=== PATIENT | female | born 1970 | race Caucasian/White ===

== ENCOUNTER → 2020-05-14 07:29 | Outpatient (CLI) | payer OTHER, SELFPAY ==
[2020-05-14 08:24] LABS: Add Manual Diff / Slide Review NO; Basophils Absolute Auto 0 /uL (0-100); Eosinophils Absolute Auto 100 /uL (0-450); Eosinophils Percent Auto 2.7 % (2-4); Hematocrit 39.1 % (36-46); Hemoglobin 13.3 g/dL (12.0-16.0); Lymphocytes Absolute Auto 900 /uL (1100-4500); Lymphocytes Percent Auto 22.9 % (25-40); Mean Corpuscular HGB Conc 34.1 % (30-36); Mean Corpuscular Hemoglobin 31.1 PG (26-34); Mean Corpuscular Volume 91.1 fL (80-100); Monocytes Absolute Auto 300 /uL (0-900); Monocytes Percent Auto 7.8 % (3-14); Neutrophils Absolute Auto 2600 /uL (1500-7000); Neutrophils Percent Auto 65.6 % (50-75); Platelet Count 130 X10^3/uL (150-400); Red Blood Cell Count 4.29 X10^6/uL (4.0-5.2); Red Cell Distribution Width 13.1 % (11.6-14.8); White Blood Cell Count 3.9 X10^3/uL (4.5-11.0)
[2020-05-14 08:54] LABS: Alanine Aminotransferase 17 IU/L (<35); Albumin 4.4 g/dL (3.5-5.0); Albumin Globulin Ratio 1.6 (1.0-2.8); Alkaline Phosphatase 45 U/L (38-126); Aspartate Aminotransferase 22 IU/L (14-36); Bilirubin Total 0.6 mg/dL (0.2-1.3); Blood Urea Nitrogen 11 mg/dL (7-17); Calcium 8.9 mg/dL (8.4-10.2); Carbon Dioxide 26 mmol/L (22-32); Chloride 107 mmol/L (98-107); Cholesterol 164 mg/dL (140-199); Estimated Glomerular Filt Rate > 60.0 mL/min (>60); Globulin 2.7 g/dL (1.7-4.1); Glucose 88 mg/dL (70-100); HDL Cholesterol 57 mg/dL (40-60); HEMOLYSIS < 15 (0-50); LDL Cholesterol Calculated 98 mg/dL (<100); Potassium 4.1 mmol/L (3.4-5.1); Sodium 140 mmol/L (137-145); Total Protein 7.1 g/dL (6.3-8.2); Triglycerides 47 mg/dL (35-150)
[2020-05-14 09:15] LABS: TSH w/ Reflex to FT4 3.91 uIU/mL (0.47-4.68)
[2020-05-15 08:12] LABS: SARS CoV19 IgG Negative (Negative)
== END ==
PROVIDERS: PCP Registered Nurse Diabetes Educator; Referring Provider Registered Nurse Diabetes Educator; Visit Provider Registered Nurse Diabetes Educator
DX: Z13.1 Encounter for screening for diabetes mellitus (principal); Z13.220 Encounter for screening for lipoid disorders; Z87.898 Personal history of other specified conditions; Z11.59 Encounter for screening for other viral diseases
CPT/HCPCS: 36415; 80053; 80061; 84443; 85025; 86769

== ENCOUNTER → 2020-05-21 14:34 | Outpatient (CLI) | payer OTHER, SELFPAY ==
[2020-05-21 15:36] LABS: Hematocrit 39.2 % (36-46); Mean Corpuscular HGB Conc 33.3 % (30-36); Mean Corpuscular Hemoglobin 30.2 PG (26-34); Mean Corpuscular Volume 90.9 fL (80-100); Platelet Count 157 X10^3/uL (150-400); Red Blood Cell Count 4.31 X10^6/uL (4.0-5.2); White Blood Cell Count 5.5 X10^3/uL (4.5-11.0)
[2020-05-21 16:13] LABS: Neutrophils Absolute Manual 3410 /uL (3000-5900); Total Cells Counted 100
[2020-05-21 16:14] LABS: RBC Morphology Normal Morphology
== END ==
PROVIDERS: PCP Registered Nurse Diabetes Educator; Referring Provider Registered Nurse Diabetes Educator; Visit Provider Registered Nurse Diabetes Educator
DX: D69.6 Thrombocytopenia, unspecified (principal)
CPT/HCPCS: 36415; 85025

== ENCOUNTER → 2020-06-28 09:37 | Outpatient (CLI) | payer OTHER, SELFPAY ==
--- NOTE | 2020-06-28 | DI.MG.S_ITS ---
BILATERAL DIGITAL SCREENING MAMMOGRAM 3D/2D WITH CAD: 06/28/2020 CLINICAL: Routine screening. Comparison is made to exams dated: 04/30/2019 mammogram, 04/17/2018 mammogram, and 04/15/2017 mammogram - outside location. The tissue of both breasts is heterogeneously dense. This may lower the sensitivity of mammography. Current study was also evaluated with a Computer Aided Detection (CAD) system. No significant masses, calcifications, or other findings are seen in either breast. There has been no significant interval change. IMPRESSION: NEGATIVE There is no mammographic evidence of malignancy. A 1 year screening mammogram is recommended. This exam was interpreted at Station ID: [id number]. NOTE: For mammograms, a report in lay terms will be sent to the patient. Approximately 15% of breast malignancies will not be visualized mammographically. In the management of a palpable breast mass, a negative mammogram must not discourage biopsy of a clinically suspicious lesion. Electronically Signed By: Nguyễn simmons/german:06/30/2020 07:55:48 letter sent: Normal Exam ACR BI-RADS Category 1: Negative 3341F
== END ==
PROVIDERS: PCP Registered Nurse Diabetes Educator; Referring Provider Registered Nurse Diabetes Educator; Visit Provider Registered Nurse Diabetes Educator
DX: Z12.31 Encounter for screening mammogram for malignant neoplasm of breast (principal)
CPT/HCPCS: 77063; 77067

== ENCOUNTER → 2021-07-28 15:34 | Outpatient (CLI) | payer OTHER, SELFPAY ==
--- NOTE | 2021-07-28 | DI.MG.S_ITS ---
BILATERAL DIGITAL SCREENING MAMMOGRAM 3D/2D WITH CAD: 07/28/2021 CLINICAL: Routine screening. Family history of breast cancer. Comparison is made to exams dated: 06/28/2020 mammogram - [facility], 04/30/2019 mammogram, and 04/17/2018 mammogram - outside location. The tissue of both breasts is heterogeneously dense. This may lower the sensitivity of mammography. Current study was also evaluated with a Computer Aided Detection (CAD) system. No significant masses, calcifications, or other findings are seen in either breast. There has been no significant interval change. IMPRESSION: NEGATIVE There is no mammographic evidence of malignancy. A 1 year screening mammogram is recommended. This exam was interpreted at Station ID: [id number]. NOTE: For mammograms, a report in lay terms will be sent to the patient. Approximately 15% of breast malignancies will not be visualized mammographically. In the management of a palpable breast mass, a negative mammogram must not discourage biopsy of a clinically suspicious lesion. Electronically Signed By: Nguyễn simmons/german:07/28/2021 16:01:42 letter sent: Normal Exam ACR BI-RADS Category 1: Negative 3341F
== END ==
PROVIDERS: PCP Registered Nurse Diabetes Educator; Referring Provider Registered Nurse Diabetes Educator; Visit Provider Registered Nurse Diabetes Educator
DX: Z12.31 Encounter for screening mammogram for malignant neoplasm of breast (principal)
CPT/HCPCS: 77063; 77067

== ENCOUNTER → 2021-08-19 09:49 | Outpatient (CLI) | payer OTHER, SELFPAY | PROVIDERS: PCP Registered Nurse Diabetes Educator; Visit Provider Nurse Practitioner Family | DX: R30.9 Painful micturition, unspecified (principal) | CPT/HCPCS: 87086 ==

== ENCOUNTER → 2022-03-07 11:45 | Outpatient (CLI) | payer OTHER, SELFPAY ==
[2022-03-07 12:07] LABS: COVID19 -Nasal RAPID Negative (Negative)
== END ==
PROVIDERS: PCP Registered Nurse Diabetes Educator; Visit Provider Nurse Practitioner Family
DX: Z20.822 Contact with and (suspected) exposure to COVID-19 (principal)
CPT/HCPCS: 87635

== ENCOUNTER → 2022-05-19 09:08 | Outpatient (CLI) | payer OTHER, SELFPAY ==
[2022-05-19 10:25] LABS: COVID19 -Nasal RAPID Negative (Negative)
== END ==
PROVIDERS: PCP Registered Nurse Diabetes Educator; Visit Provider Surgery
DX: Z20.822 Contact with and (suspected) exposure to COVID-19 (principal); Z01.812 Encounter for preprocedural laboratory examination
CPT/HCPCS: 87635; C9803

== ENCOUNTER 2022-05-20 06:43 | Day surgery (SDC) | payer OTHER, SELFPAY ==
[2022-05-20 07:20] VITALS: BP 143/79; PULSE 85; RESP 16; TEMP 36.9; O2SAT 99; BMI 24.2
--- NOTE | 2022-05-20 07:44 | PM.HP.1 ---
History of Present Illness History of Present Illness Date Patient Seen: 05/20/22 Time Patient Seen: 07:44 Chief complaint: SDC Narrative: Jeanna is a 52-year-old woman who has never had a colonoscopy before. She has no known family history of colon cancer. She describes having had an adverse reaction to fentanyl in the past when she had a and she is adamant that she does not want to have any fentanyl today. Patient History Medical History (Updated 05/20/22 @ 07:45 by Flash Haider MD) Diabetes mellitus screening History of acute illness Lipid screening Thrombocytopenia Family & Social History Social History: household members spouse Tobacco & Substance use: Smoking Status Never smoker alcohol intake current alcohol intake frequency 0-2 drinks per day Substance Use Type does not use Meds Home Medications and Allergies Home Medications Medication Instructions Recorded Confirmed Type albuterol sulfate 90 mcg/actuation 2 puff inhalation Q6H PRN 03/07/22 03/07/22 Rx aerosol inhaler shortness of breath or wheezing #6.7 grams sodium sul 1.479 gram-potas ch See Rx Instructions PO PER PKG DIR 04/20/22 Rx 0.188 gram-magnes sul 0.225 gram #24 tabs tablet (Sutab) Allergies Allergy/AdvReac Type Severity Reaction Status Date / Time fentanyl Allergy Severe Anaphylaxis Verified 05/20/22 07:17 Sulfa (Sulfonamide Allergy Severe rash, hives Verified 03/07/22 11:38 Antibiotics) Exam Vital Signs (past 8 hours): - 05/20/22 07:20 Temperature 98.5 F Pulse Rate 85 Respiratory Rate 16 Blood Pressure 143/79 H Pulse Oximetry 99 Oxygen Delivery Method Room Air Oxygen Delivery Method Room Air Const General: healthy appearing Resp Effort & Inspection: normal respiratory effort Assessment & Plan Assessment and plan (1) Colon cancer screening: Status: Acute Plan 52-year-old woman in need of colonoscopy for colon cancer screening. We reviewed the risks and benefits of colonoscopy for colon cancer screening. She would like to have Versed only for sedation. I explained the role fentanyl for pain relief and she is certain that she does not want to have any fentanyl for her sedation. We will proceed with Versed only. COVID-19 COVID-19 status: Negative Result date/Date tested (Pos, Neg/Pending): 05/19/22 Time Spent With Patient Critical Care time: I spent a total of [] minutes of critical care time on this patient's care today; this time is exclusive of procedural time.
[2022-05-20] MEDS: MIDAZOLAM 5 MG/5 ML VIAL 15 MG IV (08:03)
[2022-05-20 08:19] VITALS: BP 104/51; PULSE 85; RESP 21; O2SAT 99
--- NOTE | 2022-05-20 08:19 | PM.OP.COLON ---
Operative Date/Time/Diagnoses Date of procedure: 05/20/22 Time of procedure: 08:19 Pre-op diagnosis: Colon cancer screening Post-op diagnosis: same Procedure & Clinicians Study performed: Colonoscopy Same procedure as scheduled: Yes Surgeon: Flash Haider Procedure Notes Procedure in detail: Surgeon: Flash Haider MD Procedure: The patient was brought to the endoscopy suite, placed in left lateral decubitus position. The patient was connected to monitoring devices. A time-out was performed. Sedation was administered. Once the patient was adequately sedated, a digital rectal exam was performed and was normal. The scope was then inserted and advanced to the cecum where the appendiceal orifice was identified and photographed. The scope was then slowly withdrawn over greater than 6 minutes. The mucosa was thoroughly inspected. There were rare diverticula in the sigmoid colon. The scope was retroflexed in the rectum. No abnormalities were noted. The scope was straightened and removed. The patient was awakened and brought to recovery. Versed: 15 mg Fentanyl: 0 mcg EBL: 0 Findings: Rare sigmoid diverticula Scope withdrawal time: 6 Sedation minutes: 26 Post-procedure Recommendations: Colonoscopy in 10 years Disposition: PACU
[2022-05-20 08:26] VITALS: BP 109/64; PULSE 86; RESP 22; O2SAT 99
--- NOTE | 2022-05-20 08:31 | SUR.PHASEI ---
Pt arrived, slow to arouses, vss, follows commands, denied pain report to CAITIE Trevino
[2022-05-20 08:46] VITALS: BP 109/64; PULSE 72; RESP 16; TEMP 36.8; O2SAT 98
== END 2022-05-20 09:25 | disposition home or self-care (01) ==
PROVIDERS: PCP Registered Nurse Diabetes Educator; Referring Provider Surgery; Visit Provider Surgery
PROC: 0DJD8ZZ Inspection of Lower Intestinal Tract, Via Natural or Artificial Opening Endoscopic (ICD-10-PCS; CPT 45378; principal; 2022-05-20 07:45)
DX: Z12.11 Encounter for screening for malignant neoplasm of colon (principal); K57.30 Diverticulosis of large intestine without perforation or abscess without bleeding
CPT/HCPCS: 45378; 99152; 99153; J2250

== ENCOUNTER → 2022-08-02 10:08 | Outpatient (CLI) | payer OTHER, SELFPAY ==
--- NOTE | 2022-08-02 | DI.MG.S_ITS ---
BILATERAL DIGITAL SCREENING MAMMOGRAM 3D/2D WITH CAD: 08/02/2022 CLINICAL: Routine screening. Family history of breast cancer. Comparison is made to exams dated: 07/28/2021 mammogram, 06/28/2020 mammogram - [facility], and 04/30/2019 mammogram - outside location. Both breasts are heterogeneously dense, which may obscure small masses (category c / 51-75% glandular tissue). Current study was also evaluated with a Computer Aided Detection (CAD) system. No significant masses, calcifications, or other findings are seen in either breast. There has been no significant interval change. IMPRESSION: NEGATIVE There is no mammographic evidence of malignancy. A 1 year screening mammogram is recommended. Based on Tyrer-Cuzick model (a risk assessment model), the patient's lifetime risk is 28.2% and her 10 year risk is 7.5%. If a patient has an elevated risk, a more comprehensive evaluation should be considered and/or a referral to a genetic counselor. The [place] [employer], [employer] [employer], and NCCN Guidelines advise the consideration of Breast MRI as an adjunct to screening mammography in patients whose Lifetime risk to develop breast cancer is 20% or higher. This exam was interpreted at Station ID: [id number]. NOTE: For mammograms, a report in lay terms will be sent to the patient. Approximately 15% of breast malignancies will not be visualized mammographically. In the management of a palpable breast mass, a negative mammogram must not discourage biopsy of a clinically suspicious lesion. Electronically Signed By: Lee Franco M.D., jr/german:08/02/2022 10:34:19 letter sent: Normal Exam ACR BI-RADS Category 1: Negative 3341F
== END ==
PROVIDERS: PCP Registered Nurse Diabetes Educator; Referring Provider Registered Nurse Diabetes Educator; Visit Provider Registered Nurse Diabetes Educator
DX: Z12.31 Encounter for screening mammogram for malignant neoplasm of breast (principal); Z80.3 Family history of malignant neoplasm of breast
CPT/HCPCS: 77063; 77067

== ENCOUNTER → 2022-11-25 12:04 | Outpatient (CLI) | payer OTHER, SELFPAY ==
--- NOTE | 2022-11-25 12:06 | DI.RAD.S_ITS ---
PROCEDURE: XR LUMBAR SPINE 2-3V INDICATIONS: eval recurrent lbp TECHNIQUE: 3 views of the lumbar spine were acquired. COMPARISON: None. FINDINGS: Bones: 5 [id number] vertebral bodies are present in the lumbar spine. No significant malalignment. No vertebral body height loss. Mild overall spondylosis with facet arthropathy and minimal disc space height loss. Soft tissues: No suspicious calcifications. IMPRESSION: Mild spondylosis without acute radiographic abnormality. If there is high concern for further derangement, consider MRI evaluation. Dictated by: Damien Arreguin M.D. on 11/29/2022 at 13:22 Approved by: Damien Arreguin M.D. on 11/29/2022 at 13:23
== END ==
PROVIDERS: Family Provider Registered Nurse Diabetes Educator; PCP Registered Nurse Diabetes Educator; Referring Provider Registered Nurse Diabetes Educator; Visit Provider Registered Nurse Diabetes Educator
DX: M54.50 Low back pain, unspecified (principal); M47.816 Spondylosis without myelopathy or radiculopathy, lumbar region
CPT/HCPCS: 72100

== ENCOUNTER 2023-02-21 08:15 | Outpatient (RCR) | payer OTHER, SELFPAY ==
--- NOTE | 2022-12-22 11:12 | PT.OPPOC ---
Physical, Occupational & Speech Therapy At [facility] Current Diagnoses Stress incontinence (female) (male) (12/22/22) Visit Care Team Role Provider Type MATA Paul Attending Provider Advanced Lens Assistant Family Provider Primary Care Provider Referring Provider Specialty: Medical Address: [address] [place] [address], [facility] Email: [email or web address] Plan Of Care PT-OP-T Assessment and Plan Start: 12/06/22 12:59 Freq: Status: Active Protocol: Document 12/22/22 09:00 AMB (Rec: 12/26/22 11:11 AMB [id number]) Physical Therapy Assessment Rehab Potential Rehabilitation Potential Good Evaluation Complexity Number of Personal Factors/Comorbidities 0 Number of Body Systems Impaired 1-2 Clinical Presentation at Evaluation Stable Impairments Impairments Functional Activities,Strength Goals Two Impairment Pelvic floor strength Short Term Goal (STG) Solis will improve her pelvic floor strength to 4/5. STG Duration 5 weeks Buttermaker Continuous Churn Goal (LTG) Solis will be independent and consistent with a HEP to strengthen her pelvic floor. LTG Duration 10 weeks One Impairment Continence Short Term Goal (STG) Solis will cough while in standing without leaking. STG Duration 5 weeks Buttermaker Continuous Churn Goal (LTG) Solis will sneeze with a full bladder without leaking. LTG Duration 10 weeks Assessment Summary Assessment Solis attends physical therapy with stress urinary incontinence with cough/sneeze . Worst in the mornings and the week before her period. She was able to contract her pelvic floor, but would benefit from further strengthening of levator ani. She will benefit from physical therapy for instruction in appropriate strengthening to reduce her leaking. Physical Therapy Plan Frequency and Duration Frequency of Treatment 1x/Week Duration of treatment (weeks) 10 Plan of Care Start Date 12/22/22 Plan of Care End Date 03/02/23 Therapeutic Interventions Therapeutic Interventions Home Exercise Program,Manual Therapy,Neuromuscular Re- education,Self-Care/Home Management,Therapeutic Activities,Therapeutic Exercises Modalities Biofeedback,Electric Stimulation Next Visit Focus/Plan Next Note Type Treatment Note Next Visit Plan Review quick flicks and long holds, progress to standing as tolerated Plan of Care Dates Plan of Care Start Date 12/22/22 Plan of Care End Date 03/02/23 Electronically Signed by: Jennifer Ariza, PT 12/26/22 0719 If you are in agreement with this Plan of Care, please return a signed and dated copy. I have reviewed this Plan of Care and certify that the skilled therapy services above are required to meet the patient?s needs. Physician Signature Date Printed Name and Credentials Clinical Instructor Signature Printed Name and Credentials
--- NOTE | 2022-12-22 11:12 | PT.OIE ---
Current Diagnoses Stress incontinence (female) (male) (12/22/22) Past Medical History (Last Reviewed 11/28/22 @ 16:06 by MATA Paul) Diabetes mellitus screening History of acute illness Lipid screening Thrombocytopenia Visit Care Team Role Provider Type MATA Paul Attending Provider Advanced Learning Officer Family Provider Primary Care Provider Referring Provider Specialty: Medical Address: [address] [place] [address], [facility] Email: [email or web address] Physical Therapy Initial Evaluation PT-OP-A Visit Information Start: 12/06/22 12:59 Freq: Status: Active Protocol: Document 12/22/22 09:00 AMB (Rec: 12/22/22 09:46 AMB [id number]) Out-Patient Physical Therapy Visit Information Visit Information Visit Type Initial Evaluation Visit Start Time 09:00 Visit Stop Time 09:45 Total Visit Minutes 45 Visit Number 1 PT-OP-B Current Condition Start: 12/06/22 12:59 Freq: Status: Active Protocol: Document 12/22/22 09:00 AMB (Rec: 12/22/22 09:46 AMB [id number]) Current Condition History of Current Condition Onset Date 3 years Current Complaints stress urinary incontinence History of Current Condition 2010 was single live no leaking. But a few years ago noticed leaking. Still menstruating, but has noticed hot flashes. Worse in the morning, with sneeze and cough. Hasn't really noticed it with exercise. PT-OP-C Subjective Start: 12/06/22 12:59 Freq: Status: Active Protocol: Document 12/22/22 09:00 AMB (Rec: 12/22/22 12:15 AMB [id number]) Patient Questionnaires Pelvic Pain and Urgency/Frequency Patient Symptom Scale Pelvic Pain Score 9 PT-OP-I Pelvic Floor Start: 12/06/22 12:59 Freq: Status: Active Protocol: Document 12/22/22 09:00 AMB (Rec: 12/22/22 12:15 AMB [id number]) Pelvic Floor Assessment Urine Pelvic Floor Surgery Yes: Csection 2010 Urinary Symptoms Falling Out Feeling/Heavy Leakage Size Small Leakage Cause Cough,Sneeze Leaks Per Day 2/month Voiding Frequency 5/day Nocturia 1 Prolapse Cystocele Grade 1 Contraction Ability Voluntary Contraction Moderate Voluntary Relaxation Moderate Manual Muscle Testing Left 3 Manual Muscle Testing Right 3 Manual Muscle Testing Anterior 3 Manual Muscle Testing Posterior 3 Muscle Endurance (Seconds) 5 PT-OP-T Assessment and Plan Start: 12/06/22 12:59 Freq: Status: Active Protocol: Document 12/22/22 09:00 AMB (Rec: 12/26/22 11:11 [facility] [id number]) Physical Therapy Assessment Rehab Potential Rehabilitation Potential Good Evaluation Complexity Number of Personal Factors/Comorbidities 0 Number of Body Systems Impaired 1-2 Clinical Presentation at Evaluation Stable Impairments Impairments Functional Activities,Strength Goals Two Impairment Pelvic floor strength Short Term Goal (STG) Solis will improve her pelvic floor strength to 4/5. STG Duration 5 weeks Mri Specialist Goal (LTG) Solis will be independent and consistent with a HEP to strengthen her pelvic floor. LTG Duration 10 weeks One Impairment Continence Short Term Goal (STG) Solis will cough while in standing without leaking. STG Duration 5 weeks Mri Specialist Goal (LTG) Solis will sneeze with a full bladder without leaking. LTG Duration 10 weeks Assessment Summary Assessment Solis attends physical therapy with stress urinary incontinence with cough/sneeze . Worst in the mornings and the week before her period. She was able to contract her pelvic floor, but would benefit from further strengthening of levator ani. She will benefit from physical therapy for instruction in appropriate strengthening to reduce her leaking. Physical Therapy Plan Frequency and Duration Frequency of Treatment 1x/Week Duration of treatment (weeks) 10 Plan of Care Start Date 12/22/22 Plan of Care End Date 03/02/23 Therapeutic Interventions Therapeutic Interventions Home Exercise Program,Manual Therapy,Neuromuscular Re- education,Self-Care/Home Management,Therapeutic Activities,Therapeutic Exercises Modalities Biofeedback,Electric Stimulation Next Visit Focus/Plan Next Note Type Treatment Note Next Visit Plan Review quick flicks and long holds, progress to standing as tolerated
--- NOTE | 2022-12-28 09:44 | PT.OTN ---
Current Diagnoses Stress incontinence (female) (male) (12/28/22) Physical Therapy Treatment Note PT-OP-A Visit Information Start: 12/06/22 12:59 Freq: Status: Active Protocol: Document 12/28/22 09:06 AMB (Rec: 12/28/22 09:43 AMB [id number]) Out-Patient Physical Therapy Visit Information Visit Information Visit Type Treatment Note Visit Start Time 09:00 Visit Stop Time 09:45 Total Visit Minutes 45 Visit Number 2 PT-OP-B Current Condition Start: 12/06/22 12:59 Freq: Status: Active Protocol: Document 12/22/22 09:00 AMB (Rec: 12/22/22 09:46 AMB [id number]) Current Condition History of Current Condition Onset Date 3 years Current Complaints stress urinary incontinence History of Current Condition 2010 was single live no leaking. But a few years ago noticed leaking. Still menstruating, but has noticed hot flashes. Worse in the morning, with sneeze and cough. Hasn't really noticed it with exercise. PT-OP-C Subjective Start: 12/06/22 12:59 Freq: Status: Active Protocol: Document 12/28/22 09:06 AMB (Rec: 12/28/22 09:43 AMB [id number]) OP-PT Subjective Patient Comments Patient Comments Pt reports no new leaks. Has been working on exercises. PT-OP-I Pelvic Floor Start: 12/06/22 12:59 Freq: Status: Active Protocol: Document 12/22/22 09:00 AMB (Rec: 12/22/22 12:15 AMB [id number]) Pelvic Floor Assessment Urine Pelvic Floor Surgery Yes: Csection 2010 Urinary Symptoms Falling Out Feeling/Heavy Leakage Size Small Leakage Cause Cough,Sneeze Leaks Per Day 2/month Voiding Frequency 5/day Nocturia 1 Prolapse Cystocele Grade 1 Contraction Ability Voluntary Contraction Moderate Voluntary Relaxation Moderate Manual Muscle Testing Left 3 Manual Muscle Testing Right 3 Manual Muscle Testing Anterior 3 Manual Muscle Testing Posterior 3 Muscle Endurance (Seconds) 5 PT-OP-Q Treatments Start: 12/06/22 12:59 Freq: Status: Active Protocol: Document 12/28/22 09:06 AMB (Rec: 12/28/22 09:43 AMB [id number]) Therapeutic Exercises Sitting Exercises 1 Sitting Exercise Name roll in roll out Reps/Minutes 2x10 Comments more challenged by roll in Standing Exercises mini lunges` Comments long holds 1 Standing Exercise Name WBOS and stride stance Comments long holds PT-OP-T Assessment and Plan Start: 12/06/22 12:59 Freq: Status: Active Protocol: Document 12/28/22 09:06 AMB (Rec: 12/28/22 09:43 AMB [id number]) Physical Therapy Assessment Goals Two Impairment Pelvic floor strength Short Term Goal (STG) Solis will improve her pelvic floor strength to 4/5. STG Duration 5 weeks Sales And Production Manager Goal (LTG) Solis will be independent and consistent with a HEP to strengthen her pelvic floor. LTG Duration 10 weeks One Impairment Continence Short Term Goal (STG) Solis will cough while in standing without leaking. STG Duration 5 weeks Sales And Production Manager Goal (LTG) Solis will sneeze with a full bladder without leaking. LTG Duration 10 weeks Assessment Summary Assessment No new leaks, going to be going into PMS week next week so that will be a good test. Has been working on exercises. Roll outs easier than roll ins. Physical Therapy Plan Frequency and Duration Frequency of Treatment 1x/Week Duration of treatment (weeks) 10 Plan of Care Start Date 12/22/22 Plan of Care End Date 03/02/23 Therapeutic Interventions Therapeutic Interventions Home Exercise Program,Manual Therapy,Neuromuscular Re- education,Self-Care/Home Management,Therapeutic Activities,Therapeutic Exercises Modalities Biofeedback,Electric Stimulation Next Visit Focus/Plan Next Note Type Treatment Note Next Visit Plan Review quick flicks and long holds, progress to standing as tolerated
--- NOTE | 2023-01-19 13:03 | PT.OTN ---
Current Diagnoses Stress incontinence (female) (male) (01/19/23) Physical Therapy Treatment Note PT-OP-A Visit Information Start: 12/06/22 12:59 Freq: Status: Active Protocol: Document 01/19/23 08:19 AMB (Rec: 01/19/23 09:01 AMB [id number]) Out-Patient Physical Therapy Visit Information Visit Information Visit Type Treatment Note Visit Start Time 08:15 Visit Stop Time 09:00 Total Visit Minutes 45 Visit Number 4 PT-OP-B Current Condition Start: 12/06/22 12:59 Freq: Status: Active Protocol: Document 12/22/22 09:00 AMB (Rec: 12/22/22 09:46 AMB [id number]) Current Condition History of Current Condition Onset Date 3 years Current Complaints stress urinary incontinence History of Current Condition 2010 was single live no leaking. But a few years ago noticed leaking. Still menstruating, but has noticed hot flashes. Worse in the morning, with sneeze and cough. Hasn't really noticed it with exercise. PT-OP-C Subjective Start: 12/06/22 12:59 Freq: Status: Active Protocol: Document 01/19/23 08:19 AMB (Rec: 01/19/23 09:01 AMB [id number]) OP-PT Subjective Patient Comments Patient Comments Clear of the UTI, struggling to make a habit with exercises . PT-OP-I Pelvic Floor Start: 12/06/22 12:59 Freq: Status: Active Protocol: Document 12/22/22 09:00 AMB (Rec: 12/22/22 12:15 AMB [id number]) Pelvic Floor Assessment Urine Pelvic Floor Surgery Yes: Csection 2010 Urinary Symptoms Falling Out Feeling/Heavy Leakage Size Small Leakage Cause Cough,Sneeze Leaks Per Day 2/month Voiding Frequency 5/day Nocturia 1 Prolapse Cystocele Grade 1 Contraction Ability Voluntary Contraction Moderate Voluntary Relaxation Moderate Manual Muscle Testing Left 3 Manual Muscle Testing Right 3 Manual Muscle Testing Anterior 3 Manual Muscle Testing Posterior 3 Muscle Endurance (Seconds) 5 PT-OP-Q Treatments Start: 12/06/22 12:59 Freq: Status: Active Protocol: Document 01/19/23 08:19 AMB (Rec: 01/19/23 09:01 AMB [id number]) Therapeutic Exercises Sitting Exercises 1 Sitting Exercise Name roll in roll out Reps/Minutes 2x10 Comments more challenged by roll in Standing Exercises bicep curls, shoulder flex, scaption Resistance 5# Comments cue breathing, pelvic floor with UE weights squat Reps/Minutes 10# Comments 2x10 [address] Resistance #4 Reps/Minutes 5 mini lunges` Comments long holds 1 Standing Exercise Name WBOS and stride stance Comments long holds PT-OP-T Assessment and Plan Start: 12/06/22 12:59 Freq: Status: Active Protocol: Document 01/19/23 08:19 AMB (Rec: 01/19/23 09:01 AMB [id number]) Physical Therapy Assessment Goals Two Impairment Pelvic floor strength Short Term Goal (STG) Solis will improve her pelvic floor strength to 4/5. STG Duration 5 weeks Cnmt Goal (LTG) Solis will be independent and consistent with a HEP to strengthen her pelvic floor. LTG Duration 10 weeks One Impairment Continence Short Term Goal (STG) Solis will cough while in standing without leaking. STG Duration 5 weeks Alf Goal (LTG) Solis will sneeze with a full bladder without leaking. LTG Duration 10 weeks Assessment Summary Assessment Pt encouraged in strengthening pelvic floor with weightlifting. Pt to work for the next month and then report back on progress. Physical Therapy Plan Frequency and Duration Frequency of Treatment 1x/Week Duration of treatment (weeks) 10 Plan of Care Start Date 12/22/22 Plan of Care End Date 03/02/23 Therapeutic Interventions Therapeutic Interventions Home Exercise Program,Manual Therapy,Neuromuscular Re- education,Self-Care/Home Management,Therapeutic Activities,Therapeutic Exercises Modalities Biofeedback,Electric Stimulation Next Visit Focus/Plan Next Note Type Treatment Note Next Visit Plan Review quick flicks and long holds, progress to standing as tolerated
--- NOTE | 2023-02-21 08:57 | PT.OTN ---
Current Diagnoses Stress incontinence (female) (male) (02/21/23) Physical Therapy Treatment Note PT-OP-A Visit Information Start: 12/06/22 12:59 Freq: Status: Active Protocol: Document 02/21/23 08:20 AMB (Rec: 02/21/23 08:56 AMB [id number]) Out-Patient Physical Therapy Visit Information Visit Information Visit Type Treatment Note Visit Start Time 08:15 Visit Stop Time 09:00 Total Visit Minutes 45 Visit Number 5 PT-OP-B Current Condition Start: 12/06/22 12:59 Freq: Status: Active Protocol: Document 12/22/22 09:00 AMB (Rec: 12/22/22 09:46 AMB [id number]) Current Condition History of Current Condition Onset Date 3 years Current Complaints stress urinary incontinence History of Current Condition 2010 was single live no leaking. But a few years ago noticed leaking. Still menstruating, but has noticed hot flashes. Worse in the morning, with sneeze and cough. Hasn't really noticed it with exercise. PT-OP-C Subjective Start: 12/06/22 12:59 Freq: Status: Active Protocol: Document 02/21/23 08:20 AMB (Rec: 02/21/23 08:56 AMB [id number]) OP-PT Subjective Patient Comments Patient Comments Did try to contract pelvic floor while moving rocks around, feels overall about the same. PT-OP-I Pelvic Floor Start: 12/06/22 12:59 Freq: Status: Active Protocol: Document 12/22/22 09:00 AMB (Rec: 12/22/22 12:15 AMB [id number]) Pelvic Floor Assessment Urine Pelvic Floor Surgery Yes: Csection 2010 Urinary Symptoms Falling Out Feeling/Heavy Leakage Size Small Leakage Cause Cough,Sneeze Leaks Per Day 2/month Voiding Frequency 5/day Nocturia 1 Prolapse Cystocele Grade 1 Contraction Ability Voluntary Contraction Moderate Voluntary Relaxation Moderate Manual Muscle Testing Left 3 Manual Muscle Testing Right 3 Manual Muscle Testing Anterior 3 Manual Muscle Testing Posterior 3 Muscle Endurance (Seconds) 5 PT-OP-Q Treatments Start: 12/06/22 12:59 Freq: Status: Active Protocol: Document 02/21/23 08:20 AMB (Rec: 02/21/23 08:56 AMB [id number]) Therapeutic Exercises Sitting Exercises 1 Sitting Exercise Name roll in roll out Reps/Minutes 2x10 Comments more challenged by roll in Standing Exercises bicep curls, shoulder flex, scaption Resistance 5# Comments cue breathing, pelvic floor with UE weights squat Reps/Minutes 10# Comments 2x10 single leg squat drive Resistance #4 Reps/Minutes 5 mini lunges` Comments long holds 1 Standing Exercise Name WBOS and stride stance Comments long holds PT-OP-T Assessment and Plan Start: 12/06/22 12:59 Freq: Status: Active Protocol: Document 02/21/23 08:20 AMB (Rec: 02/21/23 08:56 AMB [id number]) Physical Therapy Assessment Goals Two Impairment Pelvic floor strength Short Term Goal (STG) Solis will improve her pelvic floor strength to 4/5. STG Duration MET Wood Preparation Supervisor Goal (LTG) Solis will be independent and consistent with a HEP to strengthen her pelvic floor. LTG Duration MET One Impairment Continence Short Term Goal (STG) Solis will cough while in standing without leaking. STG Duration MET Wood Preparation Supervisor Goal (LTG) Solis will sneeze with a full bladder without leaking. 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 She really just leaks with sneezes in her premenstrual week, so it's difficult for her to tell if she's improving or not, but she is more aware of her pelvic floor and core at this point. Physical Therapy Plan Frequency and Duration Frequency of Treatment 1x/Week Duration of treatment (weeks) 10 Plan of Care Start Date 12/22/22 Plan of Care End Date 03/02/23 Therapeutic Interventions Therapeutic Interventions Home Exercise Program,Manual Therapy,Neuromuscular Re- education,Self-Care/Home Management,Therapeutic Activities,Therapeutic Exercises Modalities Biofeedback,Electric Stimulation Next Visit Focus/Plan Next Note Type Treatment Note Next Visit Plan Review quick flicks and long holds, progress to standing as tolerated
== END 2023-02-24 08:55 | disposition home or self-care (01) ==
LOC: PHYS 08:15
PROVIDERS: Absent Provider Registered Nurse Diabetes Educator; Family Provider Registered Nurse Diabetes Educator; PCP Registered Nurse Diabetes Educator; Referring Provider Registered Nurse Diabetes Educator; Visit Provider Registered Nurse Diabetes Educator
DX: N39.3 Stress incontinence (female) (male) (principal)
CPT/HCPCS: 97110; 97161

== ENCOUNTER → 2023-08-10 16:08 | Outpatient (CLI) | payer OTHER, SELFPAY ==
--- NOTE | 2023-08-10 | DI.MG.S_ITS ---
BILATERAL DIGITAL SCREENING MAMMOGRAM 3D/2D WITH CAD: 08/10/2023 CLINICAL: Routine screening. Family history of breast cancer. Comparison is made to exams dated: 08/02/2022 mammogram, 07/28/2021 mammogram, 06/28/2020 mammogram - [facility], 04/30/2019 mammogram, and 04/17/2018 mammogram - outside location. Both breasts are heterogeneously dense, which may obscure small masses (category c / 51-75% glandular tissue). Current study was also evaluated with a Computer Aided Detection (CAD) system. There is a possible asymmetry in the left breast middle depth superior region seen on the mediolateral oblique view only. This is more prominent. No other significant masses, calcifications, or other findings are seen in either breast. IMPRESSION: INCOMPLETE: NEEDS ADDITIONAL IMAGING EVALUATION The possible asymmetry in the left breast is indeterminate. Additional views with possible ultrasound are recommended. Based on Tyrer-Cuzick model (a risk assessment model), the patient's lifetime risk is 28.2% and her 10 year risk is 7.9%. If a patient has an elevated risk, a more comprehensive evaluation should be considered and/or a referral to a genetic counselor. The [place] [employer], [employer], and NCCN Guidelines advise the consideration of Breast MRI as an adjunct to screening mammography in patients whose Lifetime risk to develop breast cancer is 20% or higher. This exam was interpreted at Station ID: [id number]. NOTE: For mammograms, a report in lay terms will be sent to the patient. Approximately 15% of breast malignancies will not be visualized mammographically. In the management of a palpable breast mass, a negative mammogram must not discourage biopsy of a clinically suspicious lesion. Electronically Signed By: Geoffrey Astudillo M.D. [facility] [place]/:08/11/2023 08:47:06 letter sent: Additional Imaging Needed ACR BI-RADS Category 0: Incomplete 3340F
== END ==
PROVIDERS: Family Provider Registered Nurse Diabetes Educator; PCP Registered Nurse Diabetes Educator; Referring Provider Registered Nurse Diabetes Educator; Visit Provider Registered Nurse Diabetes Educator
DX: Z12.31 Encounter for screening mammogram for malignant neoplasm of breast (principal); Z80.3 Family history of malignant neoplasm of breast
CPT/HCPCS: 77063; 77067

== ENCOUNTER → 2023-08-11 07:49 | Outpatient (CLI) | payer OTHER, SELFPAY ==
--- NOTE | 2023-08-11 07:50 | DI.US.S_ITS ---
PROCEDURE: US PELVIC COMPLETE INDICATIONS: ABNORMAL UTERINE BLEEDING TECHNIQUE: Real-time scanning was performed of the pelvic organs, with image documentation. Additional endovaginal scanning was necessary due to incomplete visualization of the adnexal and endometrial structures by transabdominal scanning. COMPARISON: [facility], , PELVIC COMPLETE, 03/14/2007, 8:09. FINDINGS: Uterus: Uterus is anteverted and normal in size at 8.9 x 4.8 x 5.9 cm. The myometrium is heterogeneous. The endometrium measures 4 mm combined thickness. Ovaries: The right ovary measures 2.1 x 1.8 x 2.0 cm, with a calculated ovarian volume of 4 cc. The left ovary measures 3.9 x 3.4 x 3.6 cm, with a calculated ovarian volume of 25 cc. The ovaries have a normal sonographic appearance. Less than 12 follicles can be seen in each ovary. No adnexal masses are seen. Other: No pathologic free abdominal or pelvic fluid. IMPRESSION: Endometrial stripe measures 4 millimeters, within normal limits. We strive to produce accurate, complete, and clear reports of imaging services. To assist us in improving patient care, this report was composed using standard report templates and voice recognition software. Therefore, it may contain abnormal punctuation, insertions and/or omissions. Occasional wrong-word or sound-alike substitutions may occur. Though we review the report and make efforts to correct it, we do recommend that the report be read carefully in proper context to recognize any text inaccuracies. Dictated by: Jair Ashby M.D. on 08/11/2023 at 9:58 Approved by: Jair Ashby M.D. on 08/11/2023 at 9:59
== END ==
PROVIDERS: Family Provider Registered Nurse Diabetes Educator; PCP Registered Nurse Diabetes Educator; Referring Provider Registered Nurse Diabetes Educator; Visit Provider Registered Nurse Diabetes Educator
DX: N93.9 Abnormal uterine and vaginal bleeding, unspecified (principal)
CPT/HCPCS: 76830; 76856; 93975

== ENCOUNTER → 2023-08-13 08:11 | Outpatient (CLI) | payer OTHER, SELFPAY ==
[2023-08-13 08:46] LABS: Add Manual Diff / Slide Review NO; Basophils Absolute Auto 0 /uL (0-100); Basophils Percent Auto 0.5 % (0-2); Eosinophils Absolute Auto 100 /uL (0-450); Hemoglobin 13.3 g/dL (12.0-16.0); Lymphocytes Absolute Auto 1000 /uL (1100-4500); Lymphocytes Percent Auto 23.3 % (25-40); Mean Corpuscular HGB Conc 33.9 % (30-36); Mean Corpuscular Hemoglobin 29.9 PG (26-34); Mean Corpuscular Volume 88.1 fL (80-100); Monocytes Absolute Auto 200 /uL (0-900); Monocytes Percent Auto 5.5 % (3-14); Neutrophils Absolute Auto 2900 /uL (1500-7000); Neutrophils Percent Auto 68.7 % (50-75); Platelet Count 178 X10^3/uL (150-400); Red Blood Cell Count 4.43 X10^6/uL (4.0-5.2); Red Cell Distribution Width 13.1 % (11.6-14.8); White Blood Cell Count 4.3 X10^3/uL (4.5-11.0)
[2023-08-13 08:59] LABS: Alanine Aminotransferase 15 IU/L (<35); Albumin 4.1 g/dL (3.5-5.0); Albumin Globulin Ratio 1.5 (1.0-2.8); Alkaline Phosphatase 37 U/L (38-126); Aspartate Aminotransferase 16 IU/L (14-36); BUN Creatinine Ratio 16.9 (6-22); Blood Urea Nitrogen 10 mg/dL (7-17); Calcium 9.1 mg/dL (8.4-10.2); Carbon Dioxide 26 mmol/L (22-32); Chloride 106 mmol/L (98-107); Cholesterol 163 mg/dL (140-199); Estimated Glomerular Filt Rate > 60 mL/min (>60); Globulin 2.7 g/dL (1.7-4.1); Glucose 90 mg/dL (70-100); HDL Cholesterol 58 mg/dL (40-60); HEMOLYSIS < 15 (0-50); LDL Cholesterol Calculated 91 mg/dL (<100); Potassium 4.2 mmol/L (3.4-5.1); Sodium 138 mmol/L (137-145); Total Protein 6.8 g/dL (6.3-8.2); Triglycerides 70 mg/dL (35-150)
[2023-08-13 09:17] LABS: Free T4, Direct Thyroxine 1.06 ng/dL (0.78-2.19)
[2023-08-13 09:31] LABS: Thyroid Stimulating Hormone 2.87 uIU/mL (0.47-4.68)
== END ==
PROVIDERS: Family Provider Registered Nurse Diabetes Educator; PCP Registered Nurse Diabetes Educator; Referring Provider Registered Nurse Diabetes Educator; Visit Provider Registered Nurse Diabetes Educator
DX: Z00.00 Encounter for general adult medical examination without abnormal findings (principal); D69.6 Thrombocytopenia, unspecified; Z13.1 Encounter for screening for diabetes mellitus; Z13.220 Encounter for screening for lipoid disorders
CPT/HCPCS: 36415; 80053; 80061; 84439; 84443; 85025

== ENCOUNTER → 2023-08-23 08:46 | Outpatient (CLI) | payer OTHER, SELFPAY ==
--- NOTE | 2023-08-23 | DI.MG.S_ITS ---
UNILATERAL LEFT DIGITAL DIAGNOSTIC MAMMOGRAM 3D/2D WITH ADDITIONAL VIEWS: 08/23/2023 CLINICAL: Additional evaluation requested from prior study. Comparison is made to exams dated: 08/10/2023 mammogram, 08/02/2022 mammogram, 07/28/2021 mammogram, and 06/28/2020 mammogram - [facility]. The left breast is heterogeneously dense, which may obscure small masses (category c / 51-75% glandular tissue). There is an asymmetry in the left breast middle depth superior region seen on the mediolateral oblique view only. There also is an oval lymph node in the left breast anterior depth lateral region seen on the craniocaudal view only. No other significant masses or calcifications are seen in the breast. IMPRESSION: INCOMPLETE: NEEDS ADDITIONAL IMAGING EVALUATION The asymmetry in the left breast middle depth superior region seen on the mediolateral oblique view only resembles a cyst and is indeterminate. The oval lymph node in the left breast anterior depth lateral region seen on the craniocaudal view only is indeterminate. A targeted ultrasound is recommended and will immediately follow. Based on Tyrer-Cuzick model (a risk assessment model), the patient's lifetime risk is 28.2% and her 10 year risk is 7.9%. If a patient has an elevated risk, a more comprehensive evaluation should be considered and/or a referral to a genetic counselor. The [employer], [employer], and NCCN Guidelines advise the consideration of Breast MRI as an adjunct to screening mammography in patients whose Lifetime risk to develop breast cancer is 20% or higher. This exam was interpreted at Station ID: [id number]. NOTE: For mammograms, a report in lay terms will be sent to the patient. Approximately 15% of breast malignancies will not be visualized mammographically. In the management of a palpable breast mass, a negative mammogram must not discourage biopsy of a clinically suspicious lesion. Electronically Signed By: Geoffrey Astudillo M.D. [facility]/:08/23/2023 09:47:21 ACR BI-RADS Category 0: Incomplete 3340F
--- NOTE | 2023-08-23 08:47 | DI.US.S_ITS ---
LIMITED ULTRASOUND OF LEFT BREAST: 08/23/2023 CLINICAL: Patient returns today to evaluate focal asymmetries in the left breast. Comparison is made to exams dated: 08/23/2023 mammogram, 08/10/2023 mammogram, 08/02/2022 mammogram, and 07/28/2021 mammogram - [facility]. Color flow and real-time ultrasound of the left breast 3 o'clock and 11-12 o'clock regions were performed. Mojica scale images of the real-time examination were reviewed. There is a benign 0.8 cm x 0.8 cm x 0.4 cm oval cyst in the left breast at 11 o'clock middle depth. This oval cyst is anechoic. This correlates with mammography findings. Color flow imaging demonstrates that there is no vascularity present. There also is a benign 0.7 cm x 0.6 cm x 0.4 cm normal lymph node in the left breast at 3 o'clock anterior depth 4 cm from the nipple. This correlates with mammography findings. Color flow imaging demonstrates that there is an adjacent vascularity. IMPRESSION: BENIGN There is no sonographic evidence of malignancy. The 0.8 cm simple cyst in the left breast at 11 o'clock middle depth is benign. The 0.7 cm normal lymph node in the left breast at 3 o'clock anterior depth is benign. A 1 year screening mammogram is recommended. Exam findings were conveyed to the patient. This exam was interpreted at Station ID: [id number]. Electronically Signed By: Geoffrey Astudillo M.D. [facility]/:08/23/2023 09:51:12 letter sent: Normal Exam Ultrasound BI-RADS: 2 Benign
== END ==
PROVIDERS: Family Provider Registered Nurse Diabetes Educator; PCP Registered Nurse Diabetes Educator; Referring Provider Registered Nurse Diabetes Educator; Visit Provider Registered Nurse Diabetes Educator
DX: R92.8 Other abnormal and inconclusive findings on diagnostic imaging of breast (principal); N60.02 Solitary cyst of left breast; N64.89 Other specified disorders of breast
CPT/HCPCS: 76642; 77065; G0279

== ENCOUNTER → 2024-08-29 07:59 | Outpatient (CLI) | payer OTHER, SELFPAY ==
--- NOTE | 2024-08-29 | DI.MG.S_ITS ---
BILATERAL DIGITAL SCREENING MAMMOGRAM 3D/2D WITH CAD: 08/29/2024 CLINICAL: Routine screening. Family history of breast cancer. Comparison is made to exams dated: 08/10/2023 mammogram, 08/02/2022 mammogram, and 07/28/2021 mammogram - [facility]. The breasts are heterogeneously dense, which may obscure small masses (category c / 51-75% glandular tissue). Current study was also evaluated with a Computer Aided Detection (CAD) system. No significant masses, calcifications, or other findings are seen in either breast. There has been no significant interval change. IMPRESSION: NEGATIVE There is no mammographic evidence of malignancy. A 1 year screening mammogram is recommended. Based on Tyrer-Cuzick model (a risk assessment model), the patient's lifetime risk is 28.5% and her 10 year risk is 8.4%. If a patient has an elevated risk, a more comprehensive evaluation should be considered and/or a referral to a genetic counselor. The [place] [employer], [place] [employer], and NCCN Guidelines advise the consideration of Breast MRI as an adjunct to screening mammography in patients whose Lifetime risk to develop breast cancer is 20% or higher. This exam was interpreted at Station ID: [id number]. NOTE: For mammograms, a report in lay terms will be sent to the patient. Approximately 15% of breast malignancies will not be visualized mammographically. In the management of a palpable breast mass, a negative mammogram must not discourage biopsy of a clinically suspicious lesion. Electronically Signed By: Nguyễn simmons/german:08/29/2024 12:49:58 letter sent: Normal Exam ACR BI-RADS Category 1: Negative
== END ==
LOC: MAMMO 07:59
PROVIDERS: Family Provider Registered Nurse Diabetes Educator; PCP Registered Nurse Diabetes Educator; Referring Provider Registered Nurse Diabetes Educator; Visit Provider Registered Nurse Diabetes Educator
DX: Z12.31 Encounter for screening mammogram for malignant neoplasm of breast (principal); Z80.3 Family history of malignant neoplasm of breast; R92.333 Mammographic heterogeneous density, bilateral breasts
CPT/HCPCS: 77063; 77067

== ENCOUNTER → 2024-09-19 08:58 | Outpatient (CLI) | payer OTHER, SELFPAY ==
--- NOTE | 2024-09-19 09:00 | DI.RAD.S_ITS ---
PROCEDURE: XR CHEST 2V INDICATIONS: high fevers, productive cough, 7 D TECHNIQUE: 2 views of the chest were acquired. COMPARISON: None. FINDINGS: Surgical changes and devices: None. Lungs and pleura: No dense airspace disease or pleural effusions. Mediastinum: Normal heart size Bones and chest wall: Unremarkable IMPRESSION: No acute radiographic abnormality. Dictated by: Damien Arreguin M.D. on 09/19/2024 at 9:28 Approved by: Damien Arreguin M.D. on 09/19/2024 at 9:28
== END ==
PROVIDERS: Family Provider Registered Nurse Diabetes Educator; PCP Registered Nurse Diabetes Educator; Referring Provider Student in an Organized Health Care Education/Training Program; Visit Provider Student in an Organized Health Care Education/Training Program
DX: R05.9 Cough, unspecified (principal); R50.9 Fever, unspecified
CPT/HCPCS: 71046

== ENCOUNTER → 2024-09-30 10:48 | Outpatient (CLI) | payer OTHER, SELFPAY ==
--- NOTE | 2024-09-30 10:49 | DI.RAD.S_ITS ---
PROCEDURE: XR CHEST 2V INDICATIONS: Cough TECHNIQUE: 2 views of the chest were acquired. COMPARISON: [facility], CR, XR CHEST 2V, 09/19/2024, 9:05. FINDINGS: Surgical changes and devices: None. Lungs and pleura: Mild possible opacity at the left lower lung, which may be in the lingula. No pleural effusions. Mediastinum: Normal heart size. Cardiomediastinal contours unchanged. Bones and chest wall: Unremarkable IMPRESSION: Mild possible opacity in left lower lung which may be in the lingula. Consider future imaging surveillance to assess for resolution. Dictated by: Damien Arreguin M.D. on 09/30/2024 at 18:49 Approved by: Damien Arreguin M.D. on 09/30/2024 at 18:50
== END ==
PROVIDERS: Family Provider Registered Nurse Diabetes Educator; PCP Registered Nurse Diabetes Educator; Referring Provider Nurse Practitioner Family; Visit Provider Nurse Practitioner Family
DX: R05.9 Cough, unspecified (principal)
CPT/HCPCS: 71046

== ENCOUNTER → 2024-10-09 16:03 | Outpatient (CLI) | payer OTHER, SELFPAY ==
--- NOTE | 2024-10-09 16:05 | DI.RAD.S_ITS ---
PROCEDURE: XR CHEST 2V INDICATIONS: f/u on pneumonia, continued cough TECHNIQUE: 2 views of the chest were acquired. COMPARISON: [facility], CR, XR CHEST 2V, 09/30/2024, 10:45. FINDINGS: Surgical changes and devices: None. Lungs and pleura: Increased bronchovascular markings in bilateral hilar region are again seen with bronchial wall thickening. Subtle opacities are seen in left midlung zone and bilateral lower lung field. No pleural effusion or pneumothorax. Mediastinum: Mediastinal contours are normal. Heart size is normal. Bones and chest wall: No suspicious bony abnormalities. Soft tissues appear unremarkable. IMPRESSION: Subtle opacities scattered in bilateral lower lung field and left mid lung zone concerning for infection possibly from atypical viral pneumonia suggest clinical correlation. No pleural effusion or pneumothorax. Dictated by: Dipak Turner M.D. on 10/09/2024 at 22:01 Approved by: Dipak Turner M.D. on 10/09/2024 at 22:02
== END ==
PROVIDERS: Family Provider Registered Nurse Diabetes Educator; PCP Registered Nurse Diabetes Educator; Referring Provider Physician Assistant; Visit Provider Physician Assistant
DX: J40 Bronchitis, not specified as acute or chronic (principal)
CPT/HCPCS: 71046

== ENCOUNTER → 2024-12-05 07:57 | Outpatient (CLI) | payer OTHER, SELFPAY ==
[2024-12-05 08:17] LABS: Add Manual Diff / Slide Review NO; Basophils Absolute Auto 0 /uL (0-100); Eosinophils Absolute Auto 100 /uL (0-450); Eosinophils Percent Auto 2.2 % (2-4); Hematocrit 37.8 % (36-46); Hemoglobin 12.5 g/dL (12.0-16.0); Lymphocytes Absolute Auto 1000 /uL (1100-4500); Lymphocytes Percent Auto 24.9 % (25-40); Mean Corpuscular HGB Conc 33.2 % (30-36); Mean Corpuscular Hemoglobin 29.5 PG (26-34); Mean Corpuscular Volume 89.1 fL (80-100); Monocytes Absolute Auto 300 /uL (0-900); Monocytes Percent Auto 7.3 % (3-14); Neutrophils Absolute Auto 2700 /uL (1500-7000); Neutrophils Percent Auto 64.6 % (50-75); Platelet Count 176 X10^3/uL (150-400); Red Blood Cell Count 4.24 X10^6/uL (4.0-5.2); Red Cell Distribution Width 14.4 % (11.6-14.8); White Blood Cell Count 4.2 X10^3/uL (4.5-11.0)
[2024-12-05 08:38] LABS: Alanine Aminotransferase 17 IU/L (<35); Albumin 4.4 g/dL (3.5-5.0); Albumin Globulin Ratio 2.2 (1.0-2.8); Alkaline Phosphatase 36 U/L (38-126); Aspartate Aminotransferase 21 IU/L (14-36); BUN Creatinine Ratio 13.1 (6-22); Blood Urea Nitrogen 8 mg/dL (7-17); Calcium 9.3 mg/dL (8.4-10.2); Carbon Dioxide 24 mmol/L (22-32); Chloride 106 mmol/L (98-107); Cholesterol 178 mg/dL (140-199); Estimated Glomerular Filt Rate > 60 mL/min (>60); Glucose 91 mg/dL (70-100); HDL Cholesterol 74 mg/dL (40-60); HEMOLYSIS < 15 (0-50); LDL Cholesterol Calculated 92 mg/dL (<100); Potassium 4.1 mmol/L (3.4-5.1); Sodium 136 mmol/L (137-145); Total Protein 6.4 g/dL (6.3-8.2); Triglycerides 62 mg/dL (35-150)
[2024-12-05 09:07] LABS: TSH w/ Reflex to FT4 3.37 uIU/mL (0.47-4.68)
== END ==
PROVIDERS: Family Provider Registered Nurse Diabetes Educator; PCP Registered Nurse Diabetes Educator; Referring Provider Registered Nurse Diabetes Educator; Visit Provider Registered Nurse Diabetes Educator
DX: Z13.220 Encounter for screening for lipoid disorders (principal); Z13.1 Encounter for screening for diabetes mellitus
CPT/HCPCS: 36415; 80053; 80061; 84443; 85025

== ENCOUNTER → 2025-02-26 11:49 | Outpatient (CLI) | payer OTHER, SELFPAY ==
--- NOTE | 2025-02-26 11:50 | DI.US.S_ITS ---
PROCEDURE: US PELVIC COMPLETE INDICATIONS: MENORRHAGIA x 1 TIME MARIO. NO MENSES SINCE. H/O MYOMECTOMY. TECHNIQUE: Real-time scanning was performed of the pelvic organs, with image documentation. Additional endovaginal scanning was necessary due to incomplete visualization of the adnexal and endometrial structures by transabdominal scanning. COMPARISON: [facility], , US PELVIC COMPLETE, 08/11/2023, 8:00. FINDINGS: Uterus: Uterus is retroverted and normal in size at 7.4 x 6.2 x 5.2 cm. The myometrium is heterogenous. The endometrial contour is indistinct. The uterus has a normal overall globular contour. Multiple fibroids are present; the largest ones are detailed below: 1. Mid anterior subserosal 2.3 x 1.9 x 1.2 cm fibroid 2. Right paramidline intramural 1.5 x 1.8 x 1.1 cm fibroid 3. Left mid-anterior intramural/submucosal 2.6 x 2.0 x 1.7 cm fibroid Ovaries: The right ovary measures 2.8 x 2.4 x 1.1 cm, with a calculated ovarian volume of 3.9 cc. The left ovary measures 2.9 x 1.7 x 1.7 cm, with a calculated ovarian volume of 4.3 cc. The ovaries have a normal sonographic appearance. Less than 12 follicles can be seen in each ovary. No adnexal masses are seen. Other: No pathologic free abdominal or pelvic fluid. Small amount of free fluid in the pelvis, likely physiologic. IMPRESSION: 1. Leiomyomatous uterus. 2. Globular contour of the uterus with indistinct endometrium, which may be secondary to the multiple fibroids versus underlying adenomyosis. 3. No acute sonographic abnormality of the ovaries. We strive to produce accurate, complete, and clear reports of imaging services. To assist us in improving patient care, this report was composed using standard report templates and voice recognition software. Therefore, it may contain abnormal punctuation, insertions and/or omissions. Occasional wrong-word or sound-alike substitutions may occur. Though we review the report and make efforts to correct it, we do recommend that the report be read carefully in proper context to recognize any text inaccuracies. Dictated by: Bryan Aldrich M.D. on 02/26/2025 at 14:47 Approved by: Bryan Aldrich M.D. on 02/26/2025 at 14:52
== END ==
PROVIDERS: Family Provider Registered Nurse Diabetes Educator; PCP Registered Nurse Diabetes Educator; Referring Provider Registered Nurse Diabetes Educator; Visit Provider Registered Nurse Diabetes Educator
DX: N92.1 Excessive and frequent menstruation with irregular cycle (principal); D25.0 Submucous leiomyoma of uterus; D25.1 Intramural leiomyoma of uterus; D25.2 Subserosal leiomyoma of uterus
CPT/HCPCS: 76830; 76856

== ENCOUNTER → 2025-08-30 08:05 | Outpatient (CLI) | payer OTHER, SELFPAY ==
--- NOTE | 2025-08-30 08:06 | DI.MG.S_ITS ---
MM screening mammo BI: 08/30/2025. BI-RADS: 1 CLINICAL: 55-year old female for bilateral screening mammogram. Tyrer-Cuzick lifetime risk of 13.5%. No personal or first-degree family history of breast cancer. PRIOR EXAMS 08/29/2024, 08/23/2023, 08/10/2023, 08/02/2022. MAMMOGRAPHY TECHNIQUE: 2D and 3D (tomosynthesis) digital mammographic views obtained, with additional images as needed for full coverage. Current study was also evaluated with a Computer Aided Detection (CAD) system. DENSITY C. The breasts are heterogeneously dense, which may obscure small masses. MAMMOGRAPHY FINDINGS Bilateral: No suspicious mass, asymmetry, microcalcification, or other abnormality seen. IMPRESSION: * No evidence of malignancy. RECOMMENDATIONS Bilateral * Annual screening mammography. OVERALL ASSESSMENT CATEGORY BI-RADS-1: Negative. The [employer] recommends annual screening mammography beginning at age 40 for women with average risk of breast cancer. ELECTRONICALLY SIGNED: Brandy Curiel M.D. on 09/01/2025 at 11:28:07 PM PT Interpreting Station ID: [id number]
== END ==
LOC: MAMMO 08:05
PROVIDERS: Family Provider Registered Nurse Diabetes Educator; PCP Registered Nurse Diabetes Educator; Referring Provider Registered Nurse Diabetes Educator; Visit Provider Registered Nurse Diabetes Educator
DX: Z12.31 Encounter for screening mammogram for malignant neoplasm of breast (principal); R92.333 Mammographic heterogeneous density, bilateral breasts
CPT/HCPCS: 77063; 77067